=== PATIENT | male | born 1985 | race Caucasian/White ===

== ENCOUNTER 2018-11-24 22:05 | Emergency (ER) | payer OTHER ==
[~2018-11-24] VITALS: Ht 180.3 cm; Wt 80.0 kg
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
[2018-11-24 22:12] VITALS: BP 143/89
[2018-11-24 23:01] LABS: BASOPHILS # (AUTO) 0.05 x10^3/uL (0-0.1); BASOPHILS % (AUTO) 1 % (0-1); EOSINOPHILS # (AUTO) 0.05 x10^3/uL (0-0.4); EOSINOPHILS % (AUTO) 1 % (1-7); LYMPHOCYTES % (AUTO) 10 % (22-44); MD NO; MEAN CORPUSCULAR HEMOGLOBIN 28.1 pg (27.5-34.5); MEAN CORPUSCULAR HGB CONC 32.4 g/dL (33.2-36.2); MEAN CORPUSCULAR VOLUME 86.8 fL (81-97); MEAN PLATELET VOLUME 9.6 fL (7.4-10.4); MONOCYTES # (AUTO) 0.58 x10^3/uL (0.2-0.8); MONOCYTES % (AUTO) 7 % (2-9); NEUTROPHILS # (AUTO) 7.34 x10^3/uL (1.8-6.8); NEUTROPHILS % (AUTO) 82 % (42-75); PLATELET COUNT 247 x10^3/uL (130-400); RED BLOOD COUNT 5.53 x10^6/uL (4.38-5.82); RED CELL DISTRIBUTION WIDTH 14.9 % (9.4-14.8)
[2018-11-24 23:14] LABS: CHLORIDE 108 mmol/L (98-107)
[2018-11-24 23:18] LABS: ANION GAP 7 mmol/L (5-15); CALCIUM 8.9 mg/dL (8.5-10.1); CREATININE 0.98 mg/dL (0.7-1.3)
[2018-11-24] MEDS ORDERED: IBUPROFEN 600 MG TABLET PO ONE (23:30)
[2018-11-24] MEDS ORDERED: IBUPROFEN 600 MG TABLET ONE (23:35)
--- NOTE | 2018-11-24 23:41 | NUR ---
PT MEDICATED PER EMAR
--- NOTE | 2018-11-24 23:53 | NUR ---
DC EDUCATION PROVIDED TO PT AND OFFICERS WHO DEMONTRATE UNDERSTANDING. PT AMBUALTED STEADILY TO AMBULANCE BAY WITH OFFICERS TO RETURN TO [facility].
== END 2018-11-24 23:56 | disposition home or self-care (01) ==
LOC: ED 23:26
DX: G89.11 Acute pain due to trauma (principal); M25.511 Pain in right shoulder; M54.6 Pain in thoracic spine; X58.XXXA Exposure to other specified factors, initial encounter; Y93.89 Activity, other specified; Y92.89 Other specified places as the place of occurrence of the external cause; Y99.8 Other external cause status
CPT/HCPCS: 36415; 71045; 80048; 85025; 85379; 86705; 86706; 86803; 87340; 87806; 93005; 99284; G0475